=== PATIENT | male | born 1935 | race Caucasian/White ===

== ENCOUNTER 2018-04-11 14:30 | Observation (INO) ==
[2018-04-11] MEDS ORDERED: Aspirin 325 MG Tablet PO ONE (15:36)
--- NOTE | 2018-04-11 15:45 | ED ---
HPI General Chief Complaint: Chest Pain Stated Complaint: Dr juan daniel/Chest pain/pressure/SOB Time Seen by Provider: 04/11/18 15:11 History of Present Illness HPI narrative: Patient presents to the emergency department complaining of dyspnea chest pain radiating to left arm. Started yesterday while patient was walking one half blocks of the house. Chest pains described as being pressure- like, upper part of his chest, constant, radiating to left shoulder, no aggravating factors, alleviated with rest. His plush cutter is Dr. Ho. He called him today and advised him to come to the ER. He denies fever, chills , lower extremity edema, recent travel, vomiting, but does report nausea. He has no chest pain now. He takes 81 mg of aspirin in the morning and at night, and he took his morning dose today. Complete Quality Measures for STEMI Alert Patients Related Data Home Medications Medication Instructions Recorded Confirmed alprazolam 0.5 mg PO DAILY 03/17/18 03/18/18 atenolol 25 mg PO DAILY 03/17/18 03/18/18 colesevelam 625 mg PO DAILY 03/17/18 03/18/18 diphenoxylate-atropine 1 tab PO Q6-8H 03/17/18 03/18/18 eszopiclone 1 mg PO HS PRN 03/17/18 03/18/18 ibuprofen 200 mg PO BID PRN 03/17/18 03/18/18 montelukast 10 mg PO HS 03/17/18 03/18/18 multivitamin with minerals 1 tab PO DAILY 03/17/18 03/18/18 [Multiple Vitamin-Minerals] omega-3 acid ethyl esters 2 cap PO BID 03/17/18 03/18/18 phenobarbital 15 mg PO BID 03/17/18 03/18/18 tadalafil 5 mg PO DAILY 03/17/18 03/18/18 testosterone cypionate 150 mg IM Q4W 03/17/18 03/18/18 aspirin [Aspir-Low] 81 mg PO BID 03/18/18 03/18/18 dutasteride-tamsulosin 1 cap PO DAILY 03/18/18 03/18/18 Allergies Allergy/AdvReac Type Severity Reaction Status Date / Time No Known Allergies Allergy Unverified 04/11/18 15:04 Review of Systems ROS: all other systems reviewed are negative [facility] Medical History Medical History BPH (benign prostatic hyperplasia) (Acute) High cholesterol (Acute) Pacemaker (Acute) Seizure (Acute) Social History Social History Substance History: No History of Abuse Second Hand Smoke Exposure: No Smoking Status: Never smoker How Often Do You Have a Drink Containing Alcohol: 2 to 4 times a month Recent Travel in [facility] within the Last 8 Weeks: No Recent Out of Country Travel within the Last 8 Weeks: No Immunization History Tetanus Immunization: <5 Years Hx Influenza Vaccine This Season: Yes Exam Narrative Exam Narrative: GENERAL: No acute distress. SKIN: Focused skin assessment warm/dry. HEAD: Atraumatic. Normocephalic. EYES: Pupils equal and round. No scleral icterus. No injection or drainage. ENT: No nasal bleeding or discharge. Mucous membranes pink and moist. NECK: Trachea midline. No JVD. CARDIOVASCULAR: Regular rate and rhythm. No murmur appreciated.+ pacer RESPIRATORY: No accessory muscle use. Clear to auscultation. Breath sounds equal bilaterally. GASTROINTESTINAL: Abdomen soft, non-tender, nondistended. Hepatic and splenic margins not palpable. MUSCULOSKELETAL: No obvious deformities. No clubbing. No cyanosis. No edema. NEUROLOGICAL: Awake and alert. No obvious cranial nerve deficits. Motor grossly within normal limits. Normal speech. PSYCHIATRIC: Appropriate mood and affect; insight and judgment normal. Course Initial Documented Vital Signs Temperature 97.1 F L 04/11/18 14:34 Pulse Rate 62 04/11/18 14:34 Respiratory Rate 16 04/11/18 14:34 Blood Pressure 146/72 H 04/11/18 14:34 Pulse Oximetry 96 04/11/18 14:34 Last Documented Vital Signs Temperature 97.1 F L 04/11/18 14:34 Pulse Rate 60 04/11/18 15:04 Respiratory Rate 12 04/11/18 15:04 Blood Pressure 144/74 H 04/11/18 15:04 Pulse Oximetry 94 L 04/11/18 15:04 Medical Decision Making [facility] Narrative Medical decision making narrative: Patient presents to the emergency department complaining of chest pain, which has resolved. Patient placed on hospital monitor, continuous pulse ox, and IV access obtained. Labs, chest x-ray, EKG ordered. Patient took 81 mg of aspirin today, 243 mg of aspirin ordered. CXR:CONCLUSION: Minimal basilar atelectasis. Pacer leads overlie right atrium and right ventricle. Labs: normal cbc, troponin wnl; Admit to chest pain center Differential Diagnosis Differential Diagnosis: ACS, costochondritis, CHF, pneumonia, pleural effusion, pulmonary edema, Lab Data Result diagrams: 04/11/18 15:30 04/11/18 15:30 Lab Results 04/11/18 04/11/18 04/11/18 Range/Units 15:30 15:30 15:30 WBC 5.6 (4.0-11.0) th/mm3 RBC 4.28 L (4.50-5.90) mil/mm3 Hgb 15.4 (13.0-17.0) gm/dL Hct 43.5 (39.0-51.0) % MCV 101.5 H (80.0-100.0) fL MCH 36.0 H (27.0-34.0) pg MCHC 35.5 (32.0-36.0) % RDW 13.5 (11.6-17.2) % Plt Count 202 (150-450) th/mm3 MPV 6.7 L (7.0-11.0) fL Neut % (Auto) 52.3 (16.0-70.0) % Lymph % (Auto) 31.9 (9.0-44.0) % [place] % (Auto) 11.7 H (0.0-8.0) % Eos % (Auto) 3.6 (0.0-4.0) % Baso % (Auto) 0.5 (0.0-2.0) % Neut # (Auto) 2.9 (1.8-7.7) th/mm3 Lymph # (Auto) 1.8 (1.0-4.8) th/mm3 [place] # (Auto) 0.7 (0.0-0.9) th/mm3 Eos # (Auto) 0.2 (0.0-0.4) th/mm3 Baso # (Auto) 0.0 (0.0-0.2) th/mm3 WBC Differential . Differential Comment Auto diff final PT 10.3 (9.8-11.6) sec INR 1.0 Ratio APTT 26.5 (24.3-30.1) sec Sodium 138 (136-145) meq/L Potassium 4.0 (3.5-5.1) meq/L Chloride 106 (98-107) meq/L Carbon Dioxide 25.1 (21.0-32.0) meq/L Anion Gap 7 (5-15) meq/L BUN 15 (7-18) mg/dL Creatinine 0.98 (0.60-1.30) mg/dL Estimated GFR 73 L (>89) mL/min Random Glucose 82 (74-106) mg/dL Calcium 8.8 (8.5-10.1) mg/dL Magnesium 2.1 (1.5-2.5) mg/dL Total Bilirubin 0.4 (0.2-1.0) mg/dL AST 18 (15-37) U/L ALT 33 (12-78) U/L Alkaline Phosphatase 72 (45-117) U/L Total Creatine Kinase 161 (39-308) U/L CK-MB (CK-2) 3.3 (0.5-3.6) ng/mL Troponin I Less than 0.02 L (0.02-0.05) ng/mL B-Natriuretic Peptide (0-100) pg/mL Total Protein 7.3 (6.4-8.2) g/dL Albumin 3.6 (3.4-5.0) g/dL 04/11/18 Range/Units 15:30 WBC (4.0-11.0) th/mm3 RBC (4.50-5.90) mil/mm3 Hgb (13.0-17.0) gm/dL Hct (39.0-51.0) % MCV (80.0-100.0) fL MCH (27.0-34.0) pg MCHC (32.0-36.0) % RDW (11.6-17.2) % Plt Count (150-450) th/mm3 MPV (7.0-11.0) fL Neut % (Auto) (16.0-70.0) % Lymph % (Auto) (9.0-44.0) % [place] % (Auto) (0.0-8.0) % Eos % (Auto) (0.0-4.0) % Baso % (Auto) (0.0-2.0) % Neut # (Auto) (1.8-7.7) th/mm3 Lymph # (Auto) (1.0-4.8) th/mm3 [place] # (Auto) (0.0-0.9) th/mm3 Eos # (Auto) (0.0-0.4) th/mm3 Baso # (Auto) (0.0-0.2) th/mm3 WBC Differential Differential Comment PT (9.8-11.6) sec INR Ratio APTT (24.3-30.1) sec Sodium (136-145) meq/L Potassium (3.5-5.1) meq/L Chloride (98-107) meq/L Carbon Dioxide (21.0-32.0) meq/L Anion Gap (5-15) meq/L BUN (7-18) mg/dL Creatinine (0.60-1.30) mg/dL Estimated GFR (>89) mL/min Random Glucose (74-106) mg/dL Calcium (8.5-10.1) mg/dL Magnesium (1.5-2.5) mg/dL Total Bilirubin (0.2-1.0) mg/dL AST (15-37) U/L ALT (12-78) U/L Alkaline Phosphatase (45-117) U/L Total Creatine Kinase (39-308) U/L CK-MB (CK-2) (0.5-3.6) ng/mL Troponin I (0.02-0.05) ng/mL B-Natriuretic Peptide 64 (0-100) pg/mL Total Protein (6.4-8.2) g/dL Albumin (3.4-5.0) g/dL Imaging Data Radiologist's impression: Chest X-Ray 04/11/18 15:28 CONCLUSION: Minimal basilar atelectasis. Pacer leads overlie right atrium and right ventricle. ECG Data Attestation: I personally reviewed and interpreted this ECG as follows: (Rate 60 , atrial and ventricular paced, left axis) Discharge Plan Discharge Disposition Patient Disposition: 30 Still Patient Discharge Condition Condition: Stable Discharge Details Diagnosis: Chest pain Physicians Team ED Provider: Ruthie Egan Primary Care Provider: Sree Shay Rxs /Orders / Referrals /Forms Prescriptions: No Action testosterone cypionate 100 mg/mL Oil 150 mg IM Q4W RF: 0 atenolol 25 mg Tablet 25 mg PO DAILY RF: 0 diphenoxylate-atropine 2.5-0.025 mg Tablet 1 tab PO Q6-8H RF: 0 alprazolam 0.5 mg Tablet 0.5 mg PO DAILY RF: 0 colesevelam 625 mg Tablet 625 mg PO DAILY RF: 0 phenobarbital 15 mg Tablet 15 mg PO BID RF: 0 ibuprofen 200 mg Tablet 200 mg PO BID PRN (Reason: Pain) RF: 0 montelukast 10 mg Tablet 10 mg PO HS RF: 0 multivitamin with minerals [Multiple Vitamin-Minerals] Tablet 1 tab PO DAILY RF: 0 tadalafil 5 mg Tablet 5 mg PO DAILY RF: 0 omega-3 acid ethyl esters 1 gram Capsule 2 cap PO BID RF: 0 eszopiclone 1 mg Tablet 1 mg PO HS PRN (Reason: Insomnia) RF: 0 aspirin [Aspir-Low] 81 mg Tablet,Delayed Release (Dr/Ec) 81 mg PO BID RF: 0 dutasteride-tamsulosin 0.5-0.4 mg Capsule, Er Multiphase 24 Hr 1 cap PO DAILY RF: 0 Discharge Instructions Patient Printed Instructions: Chest Pain (ED) Status ED Status: Admitted Observation Patient
--- NOTE | 2018-04-11 16:01 | XR ---
EXAM DATE: 04/11/2018 3:56 PM EDT AGE/SEX: 83 years / Male INDICATIONS: Chest pain. CLINICAL DATA: This is the patient's initial encounter. Patient reports that signs and symptoms have been present for 2 days and indicates a pain score of 2/10. MEDICAL/SURGICAL HISTORY: None. . Pacemaker. COMPARISON: No prior exams available for comparison. FINDINGS: Pacer leads overlie right atrium and right ventricle. Minimal basilar atelectasis. No effusion. No pn eumothorax. Tortuous aorta. Remote healed clavicle fractures. CONCLUSION: Minimal basilar atelectasis. Pacer leads overlie right atrium and right ventricle. Electronically signed by: Valerio Crawford MD 04/11/2018 4:00 PM EDT
[2018-04-11 16:26] LABS: Baso % (Auto) 0.5 % (0.0-2.0); Eos # (Auto) 0.2 th/mm3 (0.0-0.4); Eos % (Auto) 3.6 % (0.0-4.0); Hematocrit 43.5 % (39.0-51.0); Hemoglobin 15.4 gm/dL (13.0-17.0); Lymph # (Auto) 1.8 th/mm3 (1.0-4.8); Lymph % (Auto) 31.9 % (9.0-44.0); Mean Corpuscular HGB Conc 35.5 % (32.0-36.0); Mean Corpuscular Volume 101.5 fL (80.0-100.0); Mean Platelet Volume 6.7 fL (7.0-11.0); Mono # (Auto) 0.7 th/mm3 (0.0-0.9); Mono % (Auto) 11.7 % (0.0-8.0); Neut # (Auto) 2.9 th/mm3 (1.8-7.7); Neut % (Auto) 52.3 % (16.0-70.0); Platelet Count 202 th/mm3 (150-450); Red Blood Count 4.28 mil/mm3 (4.50-5.90); Red Cell Distribution Width 13.5 % (11.6-17.2); White Blood Count 5.6 th/mm3 (4.0-11.0)
[2018-04-11 16:41] LABS: Activated Partial Thrombo Time 26.5 sec (24.3-30.1); Prothrombin Time 10.3 sec (9.8-11.6)
[2018-04-11 16:44] LABS: Albumin 3.6 g/dL (3.4-5.0); Anion Gap 7 meq/L (5-15); Aspartate Aminotransferase 18 U/L (15-37); Blood Urea Nitrogen 15 mg/dL (7-18); Calcium 8.8 mg/dL (8.5-10.1); Carbon Dioxide 25.1 meq/L (21.0-32.0); Chloride 106 meq/L (98-107); Glomerular Filtration Rate 73 mL/min (>89); Glucose,Random 82 mg/dL (74-106); Magnesium 2.1 mg/dL (1.5-2.5); Sodium 138 meq/L (136-145)
[2018-04-11 16:46] LABS: Alanine Aminotransferase 33 U/L (12-78)
[2018-04-11 16:49] LABS: Alkaline Phosphatase 72 U/L (45-117); Creatine Kinase 161 U/L (39-308); Total Protein 7.3 g/dL (6.4-8.2)
[2018-04-11 17:01] LABS: Creatine Kinase MB 3.3 ng/mL (0.5-3.6)
[2018-04-11 19:36] LABS: Creatine Kinase 130 U/L (39-308)
[2018-04-11 22:52] LABS: Creatine Kinase 121 U/L (39-308)
--- NOTE | 2018-04-12 07:59 | ECG ---
Date Performed: 04/11/2018 Time Performed: 19:23:25 PTAGE: 83 years EKG: ELECTRONIC VENTRICULAR PACEMAKER ABNORMAL RHYTHM ECG PREVIOUS TRACING : 04/11/2018 14.59 DOCTOR: Farrukh Stanton Interpretating Date/Time 04/12/2018 07:57:38
--- NOTE | 2018-04-12 08:22 | P.HPCA ---
History of Present Illness Primary Care Physician: Sree Shay MD Chief Complaint: Chest pressure History of Present Illness: 83 year old male with history of hypertension and single vessel moderate CAD presents to ER for further evaluation of chest pressure. Onset 04/10/18 [place] the [place]. Location upper, mid chest with radiation to throat. Characterized as pressure. Moderate in severity with associated symptoms of dyspnea. No nausea, vomiting, or diaphoresis. Precipitating factors including "when I push myself too much." Endorses nonexertional component occurred 2 nights ago. 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 No recent cardiac testing. No recent illness or injury. No further chest pain episodes since arriving to ER. Past cardiac testing 08/04/2010 Cardiac catheterization (Dr. Shay) Conclusion: Single-vessel disease with 50% right coronary artery stenosis. Mild diffuse plaquing of left anterior descending artery. Plan aggressive lipid therapy. 04/28/2007 Cardiac catheterization (Dr. Shay) Conclusion: Mild diffuse disease of mid right coronary artery right about 50%, some mild ostial right coronary disease 25-40%. Normal left ventricular function. Plan medical management 50% disease - Diagnosis (1) Unstable angina Review of Systems All other systems reviewed negative except as stated in HPI PMFSH - History History Provided By: Patient - Medical History Medical History: Medical History (Last Updated 04/12/18 @ 12:41 by PRISCILLA Rose) Pacemaker (Acute) BPH (benign prostatic hyperplasia) CAD (coronary artery disease) High cholesterol Seizure - Tobacco History Second Hand Smoke Exposure: No Smoking Status: Never smoker - Alcohol History How Often Do You Have a Drink Containing Alcohol: 2 to 4 times a month - Substance Use History Substance History: No History of Abuse - Travel History Recent Travel in the [place] Within the Last 8 Weeks: No Recent Travel Out of the Country Within the Last 8 Weeks: No - Immunization History Tetanus Immunization: <5 Years Hx Influenza Vaccine This Season: Yes Medications and Allergies Active Medications: Active Medications Sodium Chloride (Ns Flush) 2 ml IV.FLUSH BID LIS Last Admin: 04/11/18 20:07 Dose: 2 ml Sodium Chloride (Ns Flush) 2 ml IV.FLUSH PRN PRN PRN Reason: FLUSH AFTER USING IV ACCESS Allergies Allergy/AdvReac Type Severity Reaction Status Date / Time No Known Allergies Allergy Unverified 04/11/18 15:04 Home Medications Medication Instructions Recorded Confirmed Type alprazolam 0.5 mg PO DAILY 03/17/18 04/11/18 History colesevelam 625 mg PO DAILY 03/17/18 04/11/18 History diphenoxylate-atropine 1 tab PO Q6-8H 03/17/18 04/11/18 History eszopiclone 1 mg PO HS PRN 03/17/18 04/11/18 History ibuprofen 200 mg PO BID PRN 03/17/18 04/11/18 History montelukast 10 mg PO HS 03/17/18 04/11/18 History multivitamin with minerals 1 tab PO DAILY 03/17/18 04/11/18 History [Multiple Vitamin-Minerals] omega-3 acid ethyl esters 2 cap PO BID 03/17/18 04/11/18 History testosterone cypionate 150 mg IM Q4W 03/17/18 04/11/18 History aspirin [Aspir-Low] 81 mg PO BID 03/18/18 04/11/18 History dutasteride-tamsulosin 1 cap PO DAILY 03/18/18 04/11/18 History phenobarbital 30 mg PO HS 04/11/18 04/12/18 History Exam Vital signs: Vital Signs 04/11/18 14:34 04/11/18 15:04 04/11/18 16:00 Temperature 97.1 F L Pulse Rate 62 60 Respiratory Rate 16 12 Blood Pressure 146/72 H 144/74 H Pulse Oximetry 96 94 L 97 04/11/18 19:05 04/11/18 20:00 04/12/18 00:00 Temperature 97.6 F 97.6 F Pulse Rate 64 66 63 Respiratory Rate 19 18 16 Blood Pressure 142/62 H 152/70 H 142/75 H Pulse Oximetry 97 95 97 04/12/18 04:00 04/12/18 07:00 04/12/18 08:00 Temperature Pulse Rate 60 Respiratory Rate 20 Blood Pressure 138/64 Pulse Oximetry Intake & Output 04/11/18 04/12/18 04/12/18 18:59 06:59 18:59 Intake Total 480 / 480 Balance 480 / 480 Weight 63.503 kg 63.5 kg Intake: Oral 480 / 480 Other: # Voids 4 Weight On Admission 63.503 kg Narrative: GENERAL: Alert WN, WD, NAD, pleasant, male HEAD: NC, AT NECK: Supple, no masses, trachea midline CV: RRR, without murmur, rub, gallop, no JVD. Chest wall nontender with palpation. No carotid bruits. RESP: Clear lungs throughout bilateral, no crackles, wheeze, rhonchi, symmetrical chest rise, nonlabored, able to speak in full sentences ABD: Soft, NT, ND, no masses, positive bowel tones EXT: Pulses +2x4, no dependent edema MS: Normal tone x4 extremities, nontender, no obvious deformities, full range of motion NEURO: CN II through CN XII grossly intact, motor strength 5/5 PSYCH: A+O x3, pleasant affect, appropriate speech, mood, insight and judgment SKIN: Normal turgor, normal texture, no lesions, no rashes, brisk cap refill, even hair distribution Results 04/11/18 15:30 04/11/18 15:30 Cardiac Enzymes 04/11/18 04/11/18 04/11/18 Range/Units 15:30 15:30 18:50 AST 18 (15-37) U/L CK-MB (CK-2) 3.3 (0.5-3.6) ng/mL Troponin I Less than 0.02 L Less than 0.02 L (0.02-0.05) ng/mL B-Natriuretic Peptide 64 (0-100) pg/mL 04/11/18 Range/Units 22:03 AST (15-37) U/L CK-MB (CK-2) (0.5-3.6) ng/mL Troponin I Less than 0.02 L (0.02-0.05) ng/mL B-Natriuretic Peptide (0-100) pg/mL Coagulation 04/11/18 04/11/18 Range/Units 15:30 15:30 PT 10.3 (9.8-11.6) sec APTT 26.5 (24.3-30.1) sec B-Natriuretic Peptide 64 (0-100) pg/mL CBC 04/11/18 Range/Units 15:30 WBC 5.6 (4.0-11.0) th/mm3 RBC 4.28 L (4.50-5.90) mil/mm3 Hgb 15.4 (13.0-17.0) gm/dL Hct 43.5 (39.0-51.0) % Plt Count 202 (150-450) th/mm3 Neut # (Auto) 2.9 (1.8-7.7) th/mm3 Lymph # (Auto) 1.8 (1.0-4.8) th/mm3 [place] # (Auto) 0.7 (0.0-0.9) th/mm3 Eos # (Auto) 0.2 (0.0-0.4) th/mm3 Baso # (Auto) 0.0 (0.0-0.2) th/mm3 Comprehensive Metabolic Panel 04/11/18 Range/Units 15:30 Sodium 138 (136-145) meq/L Potassium 4.0 (3.5-5.1) meq/L Chloride 106 (98-107) meq/L Carbon Dioxide 25.1 (21.0-32.0) meq/L BUN 15 (7-18) mg/dL Creatinine 0.98 (0.60-1.30) mg/dL Calcium 8.8 (8.5-10.1) mg/dL AST 18 (15-37) U/L ALT 33 (12-78) U/L Alkaline Phosphatase 72 (45-117) U/L Total Protein 7.3 (6.4-8.2) g/dL Albumin 3.6 (3.4-5.0) g/dL Intake and Output 04/11/18 04/12/18 04/12/18 22:59 06:59 14:59 Intake Total 480 / 480 Balance 480 / 480 Intake: Oral 480 / 480 Other: # Voids 4 Weight 63.5 kg Weight On Admission 63.503 kg EKG interpretations - EKG EKG results cardiology: WNL (V paced rhythm) Caprini VTE Risk Assessment Caprini VTE Risk Assessment: Moderate/High Risk (score >= 2) Caprini Risk Assessment Model: Point Value = 1 Point Value = 2 Point Value = 3 Point Value = 5 Age 41-60 Minor surgery BMI > 25 kg/m2 Swollen legs Varicose veins or History of unexplained or recurrent spontaneous Oral contraceptives or hormone replacement Sepsis (< 1 month) Serious lung disease, including pneumonia (< 1 month) Abnormal pulmonary function Acute myocardial infarction Congestive heart failure (< 1 month) History of inflammatory bowel disease Medical patient at bed rest Age 61-74 Arthroscopic surgery Major open surgery (> 45 min) Laparoscopic surgery (> 45 min) Malignancy Confined to bed (> 72 hours) Immobilizing plaster cast Central venous access Age >= 75 History of VTE Family history of VTE Factor V Leiden Prothrombin [id number] Lupus anticoagulant Anticardiolipin antibodies Elevated serum homocysteine Heparin-induced thrombocytopenia Other congenital or acquired thrombophilia Stroke (< 1 month) Elective arthroplasty Hip, pelvis, or leg fracture Acute spinal cord injury (< 1 month) Prophylaxis Regimen: Total Risk Factor Score Risk Level Prophylaxis Regimen 0-1 Low Early ambulation 2 Moderate Order ONE of the following: *Sequential Compression Device (SCD) *Heparin 5000 units SQ BID 3-4 Higher Order ONE of the following medications: *Heparin 5000 units SQ TID *Enoxaparin/Lovenox 40 mg SQ daily (WT < 150 kg, CrCl > 30 mL/min) *Enoxaparin/Lovenox 30 mg SQ daily (WT < 150 kg, CrCl > 10-29 mL/min) *Enoxaparin/Lovenox 30 mg SQ BID (WT < 150 kg, CrCl > 30 mL/min) AND/OR *Sequential Compression Device (SCD) 5 or more Highest Order ONE of the following medications: *Heparin 5000 units SQ TID (Preferred with Epidurals) *Enoxaparin/Lovenox 40 mg SQ daily (WT < 150 kg, CrCl > 30 mL/min) *Enoxaparin/Lovenox 30 mg SQ daily (WT < 150 kg, CrCl > 10-29 mL/min) *Enoxaparin/Lovenox 30 mg SQ BID (WT < 150 kg, CrCl > 30 mL/min) AND *Sequential Compression Device (SCD) Assessment and Plan - Assessment (1) Unstable angina Code(s): I20.0 - Unstable angina Status: Acute Plan: Admitted to chest pain center. ACS ruled out with 3 sets of EKGs and cardiac enzymes. Seen and evaluated by Dr. Nate Agrawal. Call placed to Dr. Shay to discuss plan of care. Further recommendation to follow. [phone] Jaspal barnett MD spoke with Dr. Agrawal. Plan to discharge home with follow up on Saturday with Dr. Shay in his office, with plans for cardiac catheterization early next week. Increase atenolol to 50 mg BID, add Imdur 30mg daily. Instructed to stop using Cilias, due to adding Imdur. Instructed not to restart Cilias until cleared by Dr. Shay. Verbalized understanding and agreeable to plan of care. H&P: Quality - VTE Deep Vein Thrombosis/Pulmonary Embolism Present on Admission: No
[2018-04-12 08:28] VITALS: RESP 16
--- NOTE | 2018-04-12 08:50 | ECG ---
Date Performed: 04/11/2018 Time Performed: 14:59:03 PTAGE: 83 years EKG: ELECTRONIC ATRIAL PACEMAKER ELECTRONIC VENTRICULAR PACEMAKER ABNORMAL RHYTHM ECG NO PREVIOUS TRACING DOCTOR: Farrukh Stanton Interpretating Date/Time 04/12/2018 08:48:50
--- NOTE | 2018-04-12 09:46 | P.PNCA ---
Subjective Interval history: The patient's history was reviewed with nurse practitioner, laboratory radiographic and electrocardiographic information was reviewed and the patient was then personally seen and examined. The history is as documented with the addition some of the discomfort radiated into his throat as well as his left shoulder. He also experienced some shortness of breath. A considerable amount of time was spent with the patient discussing his past history no moderate coronary disease and current presentation. He has had a previous positive nuclear scan so repeat scan would almost certainly be positive again and he has a pacemaker so exercise stress testing is not a viable option. His current presentation is very suggestive of angina and it is likely that he has had progression of his obstructive disease over the last 8 years. A call was placed to Dr. Ho and after discussion with both he and the patient the decision was made to increase his beta-chau, add a long acting nitrate, and allow him home over the weekend to report to Dr. Ho office Saturday to be scheduled for catheterization on Saturday. Physical Exam Vital signs: Vital Signs 04/11/18 14:34 04/11/18 15:04 04/11/18 16:00 Temperature 97.1 F L Pulse Rate 62 60 Respiratory Rate 16 12 Blood Pressure 146/72 H 144/74 H Pulse Oximetry 96 94 L 97 04/11/18 19:05 04/11/18 20:00 04/12/18 00:00 Temperature 97.6 F 97.6 F Pulse Rate 64 66 63 Respiratory Rate 19 18 16 Blood Pressure 142/62 H 152/70 H 142/75 H Pulse Oximetry 97 95 97 04/12/18 04:00 04/12/18 07:00 04/12/18 08:00 Temperature 97.8 F Pulse Rate 60 61 Respiratory Rate 16 Blood Pressure 138/64 136/68 Pulse Oximetry 93 L Intake & Output 04/11/18 04/12/18 04/12/18 18:59 06:59 18:59 Intake Total 480 / 480 Balance 480 / 480 Weight 63.503 kg 63.5 kg Intake: Oral 480 / 480 Other: # Voids 4 Weight On Admission 63.503 kg Narrative: Physical exam is as recorded positives being HEENT bilateral intraocular lenses cardiovascular pacemaker left upper chest with a paced rhythm Assessment and Plan - Plan After full discussion with both the patient and Dr. Ho he will be discharged on long-acting nitrate and increase beta-chau for follow-up Saturday a.m. 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
--- NOTE | 2018-04-12 12:57 | ECG ---
Date Performed: 04/11/2018 Time Performed: 21:56:42 PTAGE: 83 years EKG: ELECTRONIC VENTRICULAR PACEMAKER ABNORMAL RHYTHM ECG PREVIOUS TRACING : 04/11/2018 19.23 DOCTOR: Nate Agrawal Interpretating Date/Time 04/12/2018 12:56:29
[2018-04-12 12:58] VITALS: BP 133/75; PULSE 79; TEMP 97.9; O2SAT 96
== END 2018-04-12 14:07 | disposition home or self-care (01) ==
LOC: NEPFCDU 14:30 → NEPE 14:30 → NEDA 14:30 → NEPFCDU 19:28
PROVIDERS: ADMIT Internal Medicine Cardiovascular Disease; ATTEND Internal Medicine Cardiovascular Disease
DX: I25.10 Atherosclerotic heart disease of native coronary artery without angina pectoris; N40.0 Benign prostatic hyperplasia without lower urinary tract symptoms; Z79.899 Other long term (current) drug therapy; R07.89 Other chest pain; Z79.82 Long term (current) use of aspirin; R56.9 Unspecified convulsions; I10 Essential (primary) hypertension; E78.00 Pure hypercholesterolemia, unspecified